=== PATIENT | female | born 1945 | race Caucasian/White ===

== ENCOUNTER 2018-05-19 16:18 | Emergency (ER) | payer OTHER ==
[2018-05-19] MEDS: ACETAMINOPHEN 325 MG TAB PO (18:39)
== END 2018-05-19 19:49 | disposition home or self-care (01) ==
LOC: FTE 16:18
DX: M54.2 Cervicalgia (principal); I10 Essential (primary) hypertension; E11.9 Type 2 diabetes mellitus without complications
CPT/HCPCS: 72050; 99283-25